=== PATIENT | female | born 2000 | race Caucasian/White ===

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

== ENCOUNTER 2018-03-19 21:34 | Observation (INO) | payer SELFPAY ==
[2018-03-19 23:09] LABS: APPEARANCE TURBID (CLEAR); BACTERIA MANY /hpf (NONE SEEN); BILIRUBIN NEGATIVE (NEGATIVE); COLOR YELLOW (YELLOW); EPITHELIAL CELLS NSEEN /hpf (0-5); GLUCOSE NEGATIVE (NEGATIVE); KETONE NEGATIVE (NEGATIVE); NITRITE POSITIVE (NEGATIVE); PROTEIN 1+ mg/dL (NEGATIVE); SPECIFIC GRAVITY 1.015 (1.005-1.020); UROBILINOGEN NORMAL (NORMAL); WHITE CELLS - URINE >50 /hpf (0-5)
== END 2018-03-20 00:05 | disposition home or self-care (01) ==
LOC: D.ER 21:34 → EDSTATUS 21:58 → D.LDO 22:00 → OBSVTIME 23:00 → D.LD 23:00
PROVIDERS: Obstetrics & Gynecology
DX: O26.892 Other specified pregnancy related conditions, second trimester (principal); M54.9 Dorsalgia, unspecified; R82.90 Unspecified abnormal findings in urine

== ENCOUNTER → 2018-05-12 15:53 | Outpatient (CLI) | payer MEDICAID ==
[~2018-05-12 15:53] MED LIST: FERROUS SULFAT325 MG PO; IBUPROFEN600 MG PO
[2018-05-12 17:09] LABS: APPEARANCE HAZY (CLEAR); COLOR AMBER (YELLOW)
[2018-05-12 17:10] LABS: BILIRUBIN NEGATIVE (NEGATIVE); GLUCOSE NEGATIVE (NEGATIVE); KETONE SMALL mg/dL (NEGATIVE); NITRITE NEGATIVE (NEGATIVE); PROTEIN 1+ mg/dL (NEGATIVE); UROBILINOGEN NORMAL (NORMAL)
[2018-05-12 17:11] LABS: RED CELLS - URINE 25-50 /hpf (0-5); WHITE CELLS - URINE 0-5 /hpf (0-5)
[2018-05-12 17:12] LABS: BACTERIA MANY /hpf (NONE SEEN)
[2018-05-20 18:10] LABS: AEROBE ID Final report (())
[2018-06-11 19:04] VITALS: BMI 26.6
== END | disposition home or self-care (01) ==
LOC: D.LDO 15:53 → D.LABREF 15:53
PROVIDERS: Obstetrics & Gynecology
DX: O26.893 Other specified pregnancy related conditions, third trimester (principal); Z3A.33 33 weeks gestation of pregnancy; R10.30 Lower abdominal pain, unspecified

== ENCOUNTER 2018-06-11 15:25 | Inpatient (IN) | payer MEDICAID ==
[~2018-06-11] VITALS: Ht 160 cm; Wt 68.0 kg
[2018-06-11 17:06] LABS: APPEARANCE CLEAR (CLEAR); BILIRUBIN NEGATIVE (NEGATIVE); COLOR YELLOW (YELLOW); GLUCOSE NEGATIVE (NEGATIVE); KETONE NEGATIVE (NEGATIVE); NITRITE NEGATIVE (NEGATIVE); PROTEIN TRACE mg/dL (NEGATIVE); UROBILINOGEN NORMAL (NORMAL)
[2018-06-11 19:04] VITALS: BP 106/65; Ht 160 cm; Wt 68.0 kg
[2018-06-11 19:07] LABS: HEMATOCRIT 33.7 % (36.0-48.0); HEMOGLOBIN 10.6 g/dL (12-16); MCHC 31.5 g/dL (31.0-37.0); MCV 76.2 fL (80.0-100.0); MEAN PLATELET VOLUME 10.2 fL (7.4-10.4); RBC 4.42 10x6/uL (4.00-5.40); RDW 14.4 % (11.5-14.5)
[2018-06-11 22:05] VITALS: BP 110/67
[2018-06-12 07:15] VITALS: BP 94/57
[2018-06-12 09:24] LABS: BASOPHILS 0.1 % (0-2); EOSINOPHILS 0.3 % (0-7); HEMATOCRIT 30.4 % (36.0-48.0); HEMOGLOBIN 9.7 g/dL (12-16); IMMATURE GRANULOCYTES 0.7 % (0-5); LYMPHOCYTES 10.5 % (15-50); MCH 24.2 pg (26.0-34.0); MCHC 31.9 g/dL (31.0-37.0); MCV 75.8 fL (80.0-100.0); MEAN PLATELET VOLUME 10.5 fL (7.4-10.4); MONOCYTES 4.8 % (2-11); NEUTROPHILS 83.6 % (40-80); PLATELET COUNT 139 10x3/uL (130-400); RBC 4.01 10x6/uL (4.00-5.40); RDW 14.3 % (11.5-14.5); WBC 19.6 10x3/uL (4.8-10.8)
[2018-06-12 12:15] VITALS: BP 103/65
[2018-06-12 18:09] VITALS: BP 104/68
[2018-06-12 19:12] VITALS: BP 101/67
[2018-06-12 23:40] VITALS: BP 93/67
[2018-06-13 07:18] VITALS: BP 94/56
[2018-06-13 07:27] LABS: BASOPHILS 0.2 % (0-2); EOSINOPHILS 1.5 % (0-7); HEMATOCRIT 30.1 % (36.0-48.0); HEMOGLOBIN 9.2 g/dL (12-16); IMMATURE GRANULOCYTES 2.1 % (0-5); LYMPHOCYTES 22.7 % (15-50); MCH 23.6 pg (26.0-34.0); MCHC 30.6 g/dL (31.0-37.0); MCV 77.2 fL (80.0-100.0); MONOCYTES 4.6 % (2-11); NEUTROPHILS 68.9 % (40-80); PLATELET COUNT 138 10x3/uL (130-400); RDW 14.5 % (11.5-14.5)
[2018-06-13 07:31] LABS: WBC 13.6 10x3/uL (4.8-10.8)
[2018-06-13] MEDS ORDERED: FERROUS SULFAT325 MG PO (12:04)
[2018-06-13] MEDS ORDERED: IBUPROFEN600 MG PO (12:04)
[2018-06-14 08:20] LABS: RAPID PLASMA REAGIN Non Reactive (Non Reactive)
== END 2018-06-13 13:50 | disposition home or self-care (01) | DRG 775 ==
LOC: D.LDO 15:25 → D.LD 17:38
PROVIDERS: Obstetrics & Gynecology
PROC: 10907ZC Drainage of Amniotic Fluid, Therapeutic from Products of Conception, Via Natural or Artificial Opening (ICD-10-PCS; principal; 2018-06-11)
PROC: 10E0XZZ Delivery of Products of Conception, External Approach (ICD-10-PCS; 2018-06-11)
PROC: 3E033VJ Introduction of Other Hormone into Peripheral Vein, Percutaneous Approach (ICD-10-PCS; 2018-06-11)
DX: O75.89 Other specified complications of labor and delivery (principal); O77.0 Labor and delivery complicated by meconium in amniotic fluid; O99.02 Anemia complicating childbirth; D64.9 Anemia, unspecified; O99.344 Other mental disorders complicating childbirth; O70.0 First degree perineal laceration during delivery; Z3A.37 37 weeks gestation of pregnancy; Z37.0 Single live birth; D72.829 Elevated white blood cell count, unspecified; J45.909 Unspecified asthma, uncomplicated